=== PATIENT | female | born 1945 | race African-American/Black ===

== ENCOUNTER 2017-09-20 10:33 | Inpatient (IN) | payer OTHER ==
[2017-09-20] MEDS: NITROGLYCERIN SUBLINGUAL 0.4 MG BOTTLE OF 25. SL (11:45)
[2017-09-20 11:46] LABS: ADD MAN DIFF? NO
[2017-09-20 11:56] LABS: BASO % 0 % (0-3); EOS # 0.1 x10^3/uL (0.0-0.7); EOS % 2 % (0-3); HEMATOCRIT 40.4 % (36.0-47.0); HEMOGLOBIN 13.3 g/dL (12.0-15.5); LYMPH # 1.4 x10^3/uL (1.0-4.8); LYMPH % 23 % (24-48); MEAN CORPUSCULAR HEMOGLOBIN 30 pg (25-35); MEAN CORPUSCULAR HGB CONC 33 g/dL (31-37); MEAN CORPUSCULAR VOLUME 92 fL (79-100); MONO # 0.6 x10^3/uL (0.0-1.1); MONO % 10 % (0-9); NEUT % 65 % (31-73); PLATELET COUNT 190 x10^3/uL (140-400); RED CELL DISTRIBUTION WIDTH 13.7 % (11.5-14.5); WHITE BLOOD COUNT 6.2 x10^3/uL (4.0-11.0)
[2017-09-20 12:01] LABS: ANION GAP 9 (6-14); BLOOD UREA NITROGEN 20 mg/dL (7-20); CALCIUM 9.8 mg/dL (8.5-10.1); CARBON DIOXIDE 28 mmol/L (21-32); CHLORIDE 105 mmol/L (98-107); CREATININE 0.9 mg/dL (0.6-1.0); GFR 61.9; GLUCOSE 155 mg/dL (70-99); POTASSIUM 4.1 mmol/L (3.5-5.1); SODIUM 142 mmol/L (136-145)
[2017-09-20 12:07] LABS: PROTHROMBIN TIME PATIENT 12.3 SEC (11.7-14.0)
[2017-09-20 12:08] LABS: ALBUMIN 3.4 g/dL (3.4-5.0); ALK PHOS 67 U/L (46-116); ALT (SGPT) 15 U/L (14-59); AST (SGOT) 21 U/L (15-37); DIRECT BILIRUBIN 0.1 mg/dL (0.0-0.2); LIPASE 235 U/L (73-393); MAGNESIUM 1.8 mg/dL (1.8-2.4); TOTAL BILIRUBIN 0.3 mg/dL (0.2-1.0); TOTAL PROTEIN 7.8 g/dL (6.4-8.2)
[2017-09-20 12:09] LABS: TROPONINI < 0.017 ng/mL (0.000-0.055)
[2017-09-20 12:17] LABS: NT-PRO BNP 62 pg/mL (0-124)
[2017-09-20 12:18] LABS: CREATINE KINASE 95 U/L (26-192)
[2017-09-20 12:26] LABS: CKMB INDEX 0.5 % (0-4); CKMB MASS < 0.5 ng/mL (0.0-3.6)
[2017-09-20] MEDS: ASPIRIN 325 MG TABLET PO (13:58)
[2017-09-20] MEDS ORDERED: ONDANSETRON PF 4 MG/2 ML VIAL. IV (14:45)
[2017-09-20] MEDS ORDERED: MORPHINE SULFATE 2 MG/ML DISP.SYRIN. IV (14:45)
[2017-09-20 14:48] LABS: BILIRUBIN,URINE NEGATIVE (NEG); CLARITY,URINE CLEAR; COLOR,URINE YELLOW; GLUCOSE,URINE NEGATIVE (NEG); NITRITE,URINE NEGATIVE (NEG); PH,URINE 5.5; PROTEIN,URINE NEGATIVE (NEG-TRACE); UROBILINOGEN,URINE 0.2 mg/dL (0.2 mg/dL)
[2017-09-20 14:55] LABS: AMPHETAMINE/METHAMPHETAMINE NEG (NEG); BARBITURATES NEG (NEG); BENZODIAZEPINES NEG (NEG); CANNABINOIDS NEG (NEG); COCAINE NEG (NEG); ETHANOL, URINE NEG (NEG); METHADONE NEG (NEG); OPIATES NEG (NEG); PHENCYCLIDINE NEG (NEG)
[2017-09-20 15:19] LABS: BACTERIA,URINE FEW /HPF (0-FEW); RBC,URINE 0 /HPF (0-2); SQUAMOUS EPITHELIAL CELL,UR OCC /LPF
[2017-09-20] MEDS ORDERED: PANTOPRAZOLE 40 MG TABLET.DR. PO (16:00)
[2017-09-20 16:24] LABS: POC GLUCOSE 178 mg/dL (70-99)
[2017-09-20] MEDS: METOPROLOL TART IMMED RELEASE 25 MG TABLET. PO (17:00)
[2017-09-20] MEDS ORDERED: BUTALB/APAP/CAFEIN 50/325/40MG TABLET. PO (17:00)
[2017-09-20] MEDS: hydrALAZINE 20 MG/ML VIAL. IVP (17:06)
[2017-09-20] MEDS: traMADol 50 MG TABLET PO (18:51)
[2017-09-20] MEDS ORDERED: SUMAtriptan SUCCINATE 25 MG TABLET PO (19:45)
[2017-09-20 22:46] LABS: TROPONINI < 0.017 ng/mL (0.000-0.055)
[2017-09-20] MEDS: LACTOBACILLUS RHAMNOSUS GG 1 CAPSULE. PO (22:51)
[2017-09-20] MEDS: cefTRIAXone IV Push 1 GM VIAL. IVP (22:51)
[2017-09-21 05:47] LABS: ADD MAN DIFF? NO
[2017-09-21 05:58] LABS: BASO % 1 % (0-3); EOS # 0.2 x10^3/uL (0.0-0.7); EOS % 2 % (0-3); HEMATOCRIT 37.6 % (36.0-47.0); HEMOGLOBIN 12.4 g/dL (12.0-15.5); LYMPH # 2.1 x10^3/uL (1.0-4.8); LYMPH % 29 % (24-48); MEAN CORPUSCULAR HEMOGLOBIN 30 pg (25-35); MEAN CORPUSCULAR HGB CONC 33 g/dL (31-37); MEAN CORPUSCULAR VOLUME 92 fL (79-100); MONO # 0.8 x10^3/uL (0.0-1.1); MONO % 11 % (0-9); NEUT # 4.2 x10^3uL (1.8-7.7); NEUT % 57 % (31-73); PLATELET COUNT 199 x10^3/uL (140-400); RED BLOOD COUNT 4.08 x10^6/uL (3.50-5.40); RED CELL DISTRIBUTION WIDTH 14.1 % (11.5-14.5); WHITE BLOOD COUNT 7.3 x10^3/uL (4.0-11.0)
[2017-09-21 07:08] LABS: ANION GAP 14 (6-14); BLOOD UREA NITROGEN 22 mg/dL (7-20); CALCIUM 9.4 mg/dL (8.5-10.1); CARBON DIOXIDE 24 mmol/L (21-32); CHLORIDE 103 mmol/L (98-107); CREATININE 0.9 mg/dL (0.6-1.0); GFR 74.9; GLUCOSE 157 mg/dL (70-99); SODIUM 141 mmol/L (136-145)
[2017-09-21 07:31] LABS: TROPONINI < 0.017 ng/mL (0.000-0.055)
[2017-09-21] MEDS: LACTOBACILLUS RHAMNOSUS GG 1 CAPSULE. PO (08:48)
[2017-09-21] MEDS: traMADol 50 MG TABLET PO (08:54)
== END 2017-09-21 12:00 | disposition home or self-care (01) | DRG 311 ==
LOC: ER 10:33 → 6 SOUTH 14:00
DX: I20.9 Angina pectoris, unspecified (principal); E66.01 Morbid (severe) obesity due to excess calories; E11.9 Type 2 diabetes mellitus without complications; Z68.42 Body mass index [BMI] 45.0-49.9, adult; K21.9 Gastro-esophageal reflux disease without esophagitis; I10 Essential (primary) hypertension; E78.5 Hyperlipidemia, unspecified; Z91.041 Radiographic dye allergy status
CPT/HCPCS: 36415; 70450; 71045; 80048; 80076; 80307; 81001; 82553; 82962; 83690; 83735; 83880; 84484; 85025; 85610; 87086; 93005; J0360; J0696

== ENCOUNTER → 2020-12-14 | Outpatient (CLI) | payer OTHER ==
[2017-09-21 11:00] VITALS: BP 142/49
[~2020-12-14] MED LIST: OMEP40CA45 PO
--- NOTE | 2020-12-16 19:18 | RAD ---
DATE: 12/14/2020 EXAM: MAMMO KHUSHBOO SCREENING BILATERAL HISTORY: Screening COMPARISON: 12/14/2019, 12/12/2018, 12/09/2017 This study was interpreted with the benefit of Computerized Aided Detection (CAD). Breast Density: SCATTERED The breast parenchyma shows scattered fibroglandular densities. Breast parenchyma level B. FINDINGS: No mass, suspicious calcification, or architectural distortion in either breast. IMPRESSION: No evidence of malignancy. BI-RADS CATEGORY: 1 NEGATIVE RECOMMENDED FOLLOW-UP: 12M 12 MONTH FOLLOW-UP PQRS compliance statement: Patient information was entered into a reminder system with a target due date for the next mammogram. Mammography is a sensitive method for finding small breast cancers, but it does not detect them all and is not a substitute for careful clinical examination. A negative mammogram does not negate a clinically suspicious finding and should not result in delay in biopsying a clinically suspicious abnormality. "Our facility is accredited by the [employer] Mammography Program."
== END ==
LOC: MAMMO 08:43
PROVIDERS: ATTEND Family Medicine
DX: Z12.31 Encounter for screening mammogram for malignant neoplasm of breast (principal)
CPT/HCPCS: 77063; 77067